=== PATIENT | female | born 1980 | race Caucasian/White ===

== ENCOUNTER 2017-12-25 20:08 | Emergency (ER) | payer OTHER ==
[~2017-12-25] VITALS: Ht 172.7 cm; Wt 64.7 kg
[2017-12-25 20:08] VITALS: BP 130/70; PULSE 80; RESP 16; TEMP 99.1; O2SAT 98
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
[2017-12-25] MEDS ORDERED: ACETAMINOPHEN 325 MG TAB PO ONE (21:15)
[2017-12-25] MEDS ORDERED: CYCL10TA PO (22:09)
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
[2017-12-25 22:25] VITALS: PULSE 82; RESP 18; O2SAT 98
== END 2017-12-25 22:27 | disposition home or self-care (01) ==
LOC: PHED 20:08
DX: S96.911A Strain of unspecified muscle and tendon at ankle and foot level, right foot, initial encounter (principal); V43.92XA Unspecified car occupant injured in collision with other type car in traffic accident, initial encounter; Y92.410 Unspecified street and highway as the place of occurrence of the external cause; M54.9 Dorsalgia, unspecified; Z87.891 Personal history of nicotine dependence
CPT/HCPCS: 73610; 99283